=== PATIENT | male | born 1995 | race Two or more races ===

== ENCOUNTER 2025-04-25 03:10 | Emergency (ER) | payer SELFPAY ==
[~2025-04-25] VITALS: Ht 175.3 cm; Wt 81.6 kg
[2025-04-25 03:40] VITALS: BP 115/78; TEMP 98.5; O2SAT 97
[2025-04-25] MEDS ORDERED: oxyCODONE/APAP (5/325 MG) 1 UDTAB TABLET ONE ×2 (03:58→04:07)
[2025-04-25] MEDS ORDERED: AMOX/CLAVULANATE 875 MG TABLET ONE (03:58)
[2025-04-25] MEDS ORDERED: AMOX-430 PO (03:59)
[2025-04-25] MEDS ORDERED: oxyCODONE/APAP (5/325 MG) 1 UDTAB TABLET PO ONE ×2 (04:00)
[2025-04-25] MEDS ORDERED: AMOX/CLAVULANATE 875 MG TABLET PO ONE (04:00)
== END 2025-04-25 04:31 | disposition home or self-care (01) ==
LOC: ER 03:16
DX: K08.89 Other specified disorders of teeth and supporting structures (principal); J45.909 Unspecified asthma, uncomplicated; Z88.5 Allergy status to narcotic agent; Z88.6 Allergy status to analgesic agent; Z90.49 Acquired absence of other specified parts of digestive tract; Z88.8 Allergy status to other drugs, medicaments and biological substances; Z60.2 Problems related to living alone